=== PATIENT | female | born 1970 | race African-American/Black ===

== ENCOUNTER 2017-05-17 18:20 | Emergency (ER) | payer OTHER, SELFPAY | END 2017-05-17 20:23 | disposition home or self-care (01) | LOC: SCSER 18:20 | DX: J10.1 Influenza due to other identified influenza virus with other respiratory manifestations (principal); I10 Essential (primary) hypertension; Z79.899 Other long term (current) drug therapy | CPT/HCPCS: 99284 ==

== ENCOUNTER 2017-10-18 14:38 | Emergency (ER) | payer SELFPAY ==
[2017-10-18] MEDS ORDERED: methylPREDNISolone Acetate 40 mg/ml Vial ONE (14:59)
== END 2017-10-18 15:23 | disposition home or self-care (01) ==
LOC: SCSER 14:38
DX: J20.9 Acute bronchitis, unspecified (principal); I10 Essential (primary) hypertension; Z79.899 Other long term (current) drug therapy
CPT/HCPCS: 96372; J1030

== ENCOUNTER 2017-10-20 21:58 | Emergency (ER) | payer SELFPAY ==
[2017-10-20 22:22] LABS: Bilirubin Negative (Negative); Blood, Urine Small (Negative); Clarity Cloudy (Clear); Glucose, Urine (Dipstick) Negative (Negative); Leukocyte Large (Negative); Nitrite Negative (Negative); Protein, Urine (Dipstick) Negative (Neg-Trace); Specific Gravity, Urine 1.025 (1.005-1.030); Urobilinogen 0.2 mg/dL (0.2-1.0); pH, Urine 5.5 (5.0-9.0)
[2017-10-20 22:29] LABS: Bacteria/HPF 2+ HPF (None Seen); Hyaline Casts/LPF 0-3 HYALINE CAST LPF (0-3 Hyaline); WBC/HPF 21-50 HPF (0-3)
== END 2017-10-20 22:31 | disposition home or self-care (01) ==
LOC: SCSER 21:58
DX: N39.0 Urinary tract infection, site not specified (principal); I10 Essential (primary) hypertension
CPT/HCPCS: 81003; 81015; 99283

== ENCOUNTER 2018-01-20 11:12 | Emergency (ER) | payer SELFPAY ==
[2018-01-20] MEDS ORDERED: Fluorescein Opthalmic Strip ONE (11:27)
[2018-01-20] MEDS ORDERED: Tobramycin Sulfate 0.3% Ophth Susp 5 ml Bottle ONE (11:45)
== END 2018-01-20 12:00 | disposition home or self-care (01) ==
LOC: SCSER 11:12
DX: S05.01XA Injury of conjunctiva and corneal abrasion without foreign body, right eye, initial encounter (principal); H10.9 Unspecified conjunctivitis; I10 Essential (primary) hypertension; Z79.899 Other long term (current) drug therapy; X58.XXXA Exposure to other specified factors, initial encounter
CPT/HCPCS: 99283

== ENCOUNTER 2018-09-16 17:56 | Emergency (ER) | payer OTHER | END 2018-09-16 18:42 | disposition home or self-care (01) | LOC: SCSER 17:56 | DX: H66.91 Otitis media, unspecified, right ear (principal); I10 Essential (primary) hypertension | CPT/HCPCS: 99283 ==

== ENCOUNTER 2025-05-28 08:17 | Inpatient (IN) | payer OTHER ==
[2025-05-28] MEDS ORDERED: Amoxicillin/Potassium Clav 875 MG TAB ONE (09:59)
[2025-05-28] MEDS ORDERED: Lisinopril 10 MG TAB ONE (09:59)
[2025-05-28] MEDS ORDERED: Ketorolac Tromethamine 30 MG (1 mL) VIAL ONE ×2 (09:59→11:47)
[2025-05-28 10:09] LABS: #Basophils Less than 0.03 10x3/uL (0.0-0.2); #Eosinophils 0.11 10x3/uL (0.0-0.7); #Monocytes 0.41 10x3/uL (0.11-0.59); #Neutrophils 1.28 10x3/uL (1.40-6.50); %Basophils 0.6 % (0.0-1.0); %Eosinophils 3.5 % (0.0-10.0); %Lymphocytes 42.2 % (21.0-51.0); %Monocytes 13.0 % (0.0-10.0); %Neutrophils 40.7 % (42.0-75.0); Hematocrit 42.4 % (36.0-47.0); Hemoglobin 13.9 g/dL (12.0-16.0); Mean Corpuscular Hemoglobin 29.6 pg (27.0-31.0); Mean Corpuscular Volume 90.2 fL (78.0-98.0); Platelet Count 250 10x3/uL (130-400); Red Blood Cell (RBC) Count 4.70 mill/uL (4.20-5.40); White Blood Cell (WBC) Count 3.15 10x3/uL (4.8-10.8)
[2025-05-28 10:24] LABS: BHCG - Serum Negative (NEGATIVE); Pregs Control Background? CLEAR/WHITE (CLR/WHITE); Pregs Control Bar Appear? YES (CONTROL BAR)
[2025-05-28 10:25] LABS: ALT (SGPT) 36 U/L (Less than 34); AST (SGOT) 62 U/L (11-34); Albumin 4.2 g/dL (3.1-4.5); Alkaline Phosphatase 79 U/L (40-110); Anion Gap 17 mmol/L (10-20); BUN (Urea Nitrogen) 13 mg/dL (9.8-20.1); Bilirubin, Total 0.2 mg/dL (0.3-1.2); Calc. Creatinine Clearance 0 mL/min (70-130); Calcium 10.0 mg/dL (7.8-10.44); Carbon Dioxide 26 mmol/L (22-29); Chloride 102 mmol/L (98-107); Globulin 4.3 g/dL (2.4-3.5); Glucose 104 mg/dL (70-105); Potassium 3.8 mmol/L (3.5-5.1); Sodium 141 mmol/L (136-145)
[2025-05-28] MEDS ORDERED: hydrALAZINE 20 MG/ML VIAL ONE (12:34)
[2025-05-28] MEDS ORDERED: Gabapentin 300 MG CAP ONE (16:20)
[2025-05-28] MEDS: Gabapentin 300 MG CAP PO SCH (16:25)
[2025-05-28 18:34] VITALS: BMI 48.2
[2025-05-28] MEDS: Acetaminophen 500 MG TAB PO SCH (19:49)
[2025-05-28] MEDS: hydrALAZINE 10 MG TAB PO PRN (21:29)
[2025-05-28] MEDS: Losartan 25 MG TAB PO SCH (23:02)
[2025-05-29] MEDS: Acetaminophen 325 MG TAB PO PRN (02:59)
[2025-05-30 07:44] VITALS: BP 134/81; TEMP 98.5
[2025-05-30] MEDS: Losartan 25 MG TAB PO SCH (08:44)
== END 2025-05-30 11:25 | disposition home or self-care (01) | DRG 305 ==
LOC: ERS 08:17 → ERHOLD 13:12 → OBS 18:04 → OBSVTOIN 05-29 09:32
PROVIDERS: ADMIT Internal Medicine; ATTEND Internal Medicine
DX: I10 Essential (primary) hypertension (principal); K02.9 Dental caries, unspecified; Z98.891 History of uterine scar from previous surgery; Z79.899 Other long term (current) drug therapy
CPT/HCPCS: 80053; 84703; 85025; 93005; 96374; 96375; 96376; G0378; J0360; J1885; J2270; J2272